=== PATIENT | male | born 1945 | race Caucasian/White ===

== ENCOUNTER → 2017-08-11 | Outpatient (CLI) | payer OTHER | END | disposition home or self-care (01) | LOC: NUC 08-07 10:00 | DX: C79.51 Secondary malignant neoplasm of bone (principal); M19.012 Primary osteoarthritis, left shoulder; M19.011 Primary osteoarthritis, right shoulder; M19.072 Primary osteoarthritis, left ankle and foot; M19.071 Primary osteoarthritis, right ankle and foot; Z85.46 Personal history of malignant neoplasm of prostate | CPT/HCPCS: 78306; A9503 ==

== ENCOUNTER → 2017-09-03 | Outpatient (CLI) | payer OTHER ==
[~2017-09-03] VITALS: Ht 175.3 cm; Wt 90.7 kg
[~2017-09-03] MED LIST: BENICAR40 MG PO; CRESTOR20 MG PO; GLIPIZIDE ER2.5 MG PO; METFORMIN HCL500 MG PO; VICTOZA0.6 MG/0.1 SC
== END | disposition home or self-care (01) ==
LOC: AMB 07:34
PROVIDERS: Internal Medicine Gastroenterology
PROC: 0DD98ZX Extraction of Duodenum, Via Natural or Artificial Opening Endoscopic, Diagnostic (ICD-10-PCS; principal; 2017-09-03)
DX: K31.89 Other diseases of stomach and duodenum (principal); Z85.46 Personal history of malignant neoplasm of prostate; R97.21 Rising PSA following treatment for malignant neoplasm of prostate; I10 Essential (primary) hypertension; E11.9 Type 2 diabetes mellitus without complications; E78.5 Hyperlipidemia, unspecified; Z79.84 Long term (current) use of oral hypoglycemic drugs; Z80.0 Family history of malignant neoplasm of digestive organs; Z82.0 Family history of epilepsy and other diseases of the nervous system
CPT/HCPCS: 82948; 88305; 93005; J0330; J1100; J2250; J2405; J3010